=== PATIENT | female | born 1985 | race African-American/Black ===

== ENCOUNTER 2019-10-19 03:30 | Observation (INO) | payer OTHER, SELFPAY ==
--- NOTE | 2019-11-13 12:06 | PM.OBTRLD ---
OB - Triage/Final Diagnosis Visit Information Date of evaluation: 10/19/19 Reason for evaluation: threatened labor
== END 2019-10-19 06:05 | disposition home or self-care (01) ==
PROVIDERS: Admitting Provider Obstetrics & Gynecology; Visit Provider Obstetrics & Gynecology
DX: O47.1 False labor at or after 37 completed weeks of gestation (principal); Z3A.38 38 weeks gestation of pregnancy
CPT/HCPCS: G0378; G0379

== ENCOUNTER 2019-10-25 03:55 | Inpatient (IN) | payer OTHER, SELFPAY ==
[2019-10-25] VITALS (97 sets, daily range): BP systolic 98–139; BP diastolic 50–100; PULSE 67–153; RESP 16; TEMP 36.4–36.9; O2SAT 99–100; BMI 34.4
--- NOTE | 2019-10-25 04:39 | LDADM ---
This patient, Nallely Mcwilliams, was admitted to Labor/Delivery/Recovery 104 on 10/25/19 at 03:55. Plans for labor, pain management and were discussed with patient. Patient/family oriented to hospital policies and general routines including ID bracelet, bed and alarms, visiting hours, pain management, procedures, bathroom and other care routines, personal items, smoking policy, room service/diet and guest tray routines, infant security routines, and visiting hours. Patient/Family are encouraged to report perceived risks to care and to ask questions if they do not understand what they are told or what they should do. See OBIX for further documentation.
[2019-10-25 04:43] LABS: Basophils Percent Auto 0.1 % (0.2-1.2); Eosinophils Absolute Auto 0.1 K/mm3 (0-0.3); Eosinophils Percent Auto 0.9 % (0-4.4); Hematocrit 32.6 % (37.0-47.0); Hemoglobin 10.2 g/dL (12.0-15.0); Immature Granulocyte Percent A 1.2 % (0-0.5); Lymphocytes Absolute Auto 1.62 K/mm3 (0.9-3.2); Mean Corpuscular HGB Conc 31.3 g/dl (32-36); Mean Corpuscular Hemoglobin 28.4 pg (26-34); Mean Corpuscular Volume 90.8 fl (80-100); Mean Platelet Volume 9.9 fl (7.4-10.4); Monocytes Absolute Auto 0.4 K/mm3 (0.1-0.6); Monocytes Percent Auto 5.4 % (2.6-8.5); Neutrophils Absolute Auto 5.9 K/mm3 (1.3-6.7); Neutrophils Percent Auto 72.4 % (45.5-73.1); Platelet Count Result 363 k/mm3 (150-375); Red Blood Count 3.59 M/mm3 (4.2-5.4); Red Cell Distribution Width 13.5 % (11.5-14.5); White Blood Count 8.1 K/mm3 (4.5-10.0)
[2019-10-25] MEDS: FAMOTIDINE 20 MG/2 ML VIAL IV PUSH (04:49)
[2019-10-25] MEDS: LACTATED RINGERS 1,000 ML 125 ML IV CONT ×2 (05:29→06:38)
--- NOTE | 2019-10-25 06:39 | WPDANESEPP ---
Anes - Eval Pre Procedure Procedure: labor epidural Date/Time: 10/25/19 06:39 Surgeon: Liss Preop Diagnosis: labor pain Pre Op Diagnosis: INDUCTION OF LABOR Patient Data Age: 34 Gender: F Height: 1.68 m Weight: 97 kg Last Vital Signs Temp 36.9 C 10/25/19 04:30 Pulse 83 10/25/19 06:37 BP 130/79 10/25/19 06:37 Pulse Ox 99 10/25/19 06:35 Allergies Allergy/AdvReac Type Severity Reaction Status Date / Time tramadol Allergy Intermediate Itching Verified 10/05/19 13:47 Home Medications Medication Instructions Recorded Confirmed Type Gummies See Rx Instructions .ROUTE .COMPLEX 08/23/19 10/12/19 History Laboratory Tests 10/25/19 10/25/19 10/25/19 04:18 04:18 04:18 WBC 8.1 K/mm3 K/mm3 (4.5-10.0) RBC 3.59 M/mm3 L M/mm3 (4.2-5.4) Hgb 10.2 g/dL L g/dL (12.0-15.0) Hct 32.6 % L % (37.0-47.0) MCV 90.8 fl fl (80-100) MCH 28.4 pg pg (26-34) MCHC 31.3 g/dl L g/dl (32-36) RDW 13.5 % % (11.5-14.5) Plt Count 363 k/mm3 k/mm3 (150-375) MPV 9.9 fl fl (7.4-10.4) Immature Gran % (Auto) 1.2 % H % (0-0.5) Neut % (Auto) 72.4 % % (45.5-73.1) Lymph % (Auto) 20.0 % % (18.3-44.2) Rains % (Auto) 5.4 % % (2.6-8.5) Eos % (Auto) 0.9 % % (0-4.4) Baso % (Auto) 0.1 % L % (0.2-1.2) Lymph # (Auto) 1.62 K/mm3 K/mm3 (0.9-3.2) Rains # (Auto) 0.4 K/mm3 K/mm3 (0.1-0.6) Eos # (Auto) 0.1 K/mm3 K/mm3 (0-0.3) Baso # (Auto) 0.0 K/mm3 K/mm3 (0.0-0.1) Abs Immat Gran (auto) 0.10 K/mm3 H K/mm3 (0.00-0.031) Absolute Neuts (auto) 5.9 K/mm3 K/mm3 (1.3-6.7) Absolute Nucleated RBC 0.0 K/mm3 K/mm3 (0.0-0.012) Nucleated RBC % 0.0 % % (0.0-0.2) RPR Pending Blood Type Pending Antibody Screen Pending Patient hx anesthesia problems: none Family hx anesthesia problems: none [facility] Family History Family History (Updated 10/05/19 @ 13:26 by Sussy Edmond RN) Mother Hypertension Father Malignant neoplasm of prostate Social History Social History Smoking status: Former smoker Substance use: never Gender identity (if verbalized by the patient): Female Spiritual care concerns: No Exam Day of Procedure 10/25/19 06:39 Patient weight: obese
--- NOTE | 2019-10-25 07:32 | WPDOBADMIT ---
Obstetrics - Admit Note Admission Note: record reviewed. No pertinent additions to the history and/or any subsequent changes in the physical findings that are not consistent with the expected course of the were found. Additions to the history and/or subsequent changes in the physical findings follow. at 39 weeks for induction of labor. GBS negative. Cervix 4/50/-2. AROM with clear fluid. Anticipate .
[2019-10-25] MEDS: ONDANSETRON INJ 4 MG/2 ML VIAL IV PUSH (07:46)
[2019-10-25 10:48] LABS: Rapid Plasma Reagin Non-Reactive (NonReactive)
--- NOTE | 2019-10-25 11:06 | PM.OBPRVD ---
OB - Delivery Note Procedure Delivery date: 10/25/19 Procedure: events: Labor Induction Intrapartal events: None Induction method: AROM and per pitocin protocol Delivery monitor: external FHT Route of delivery: Laceration description: None Specimen: No Estimated blood loss (mL): 65 Anesthesia type: Epidural Disposition: floor Baby Date of : 10/25/19 Time of : 10:45 Weeks of gestation at delivery: 39 gender: Male Weight (pounds): 7 Weight (ounces): 14 presentation: vertex position: Right Occiput Posterior Placenta delivery description: Spontaneous cord vessel description: 3 Vessels score one minute: 9 score five minutes: 9
[2019-10-25] MEDS: IBUPROFEN 600 MG TABLET PO ×2 (14:03→20:44)
--- NOTE | 2019-10-25 14:10 | PC.NURSE ---
Patient transferred to post room #280 via wheelchair from labor and delivery. Support person present. Oriented to unit, room, information board, rooming in, admission packet and security measures. Patient verbalizes understanding.
[2019-10-25] MEDS: ACETAMINOPHEN 325 MG TABLET 650 MG PO (23:48)
[2019-10-26] MEDS: IBUPROFEN 600 MG TABLET PO ×4 (04:00→22:59)
--- NOTE | 2019-10-26 04:31 | P.PNOB_ITS ---
OB - PN: Subj Subjective Date/time seen: 10/26/19 04:31 Patient comments: no complaints, pain well controlled and other (Lochia similar to menses) [place] baby status: doing well OB - PN: Obj Data Labs CBC & Chem 7: 10/25/19 04:18 Labs: Laboratory Results - last 24 hr 10/25/19 10/25/19 10/25/19 04:18 04:18 04:18 WBC 8.1 RBC 3.59 L Hgb 10.2 L Hct 32.6 L MCV 90.8 MCH 28.4 MCHC 31.3 L RDW 13.5 Plt Count 363 MPV 9.9 Immature Gran % (Auto) 1.2 H Neut % (Auto) 72.4 Lymph % (Auto) 20.0 [place] % (Auto) 5.4 Eos % (Auto) 0.9 Baso % (Auto) 0.1 L Lymph # (Auto) 1.62 [place] # (Auto) 0.4 Eos # (Auto) 0.1 Baso # (Auto) 0.0 Abs Immat Gran (auto) 0.10 H Absolute Neuts (auto) 5.9 Absolute Nucleated RBC 0.0 Nucleated RBC % 0.0 RPR Non-reactive Blood Type B Positive Antibody Screen Negative OB - PN A/P Plan day: 1 (s/p vaginal delivery, doing well) Plan: routine care Time Spent With Patient Time: Total time spent is greater than 50% in coordination of care (as documented) at patient's floor/unit and/or counseling patient: Exam Const: General: no acute distress GI: Inspection: other (Fundus firm and nontender at umbilicus) GI Palp: Yes Soft to palpation and No Tenderness to palpation present (GI) Extrem: General: no edema
[2019-10-26 04:58] LABS: Hematocrit 29.4 % (37.0-47.0); Hemoglobin 9.5 g/dL (12.0-15.0)
--- NOTE | 2019-10-26 05:20 | PC.NURSE ---
Received orders from Dr. Domínguez to go ahead and order patient [place] 5mg q3 hrs as per protocol. Spoke with patient regarding her allergy to Tramadol, she had itching when she took the medication, patient has taken [place] before for a toothache and never had a problem. Confirmed with pharmacy that OK to order and as long as she has had the medication before. Confirmed with patient again before administering and she confirmed that she has taken [place] before without any reactions. Will continue to monitor patient.
--- NOTE | 2019-10-26 06:20 | PC.NURSE ---
Pt introductions made and plan of care discussed per post , pain management, breast/bottle feeding, daily care activities. PT verbalized understanding of such care.
[2019-10-26 08:50] VITALS: BP 114/72; PULSE 70; RESP 18; TEMP 36.6; O2SAT 100
[2019-10-26] MEDS: DOCUSATE SODIUM 100 MG CAPSULE PO ×2 (08:51→16:03)
[2019-10-26] MEDS: MULTIVIT/MIN/PREN/FOL AC/IRON TABLET 1 TAB PO (08:51)
[2019-10-26] MEDS: POLYSACCHARIDE IRON COMPLEX 150 MG CAPSULE PO ×2 (08:51→16:03)
[2019-10-26] MEDS: LANOLIN (LANSINOH) 7.5 GM CREAM 1 APPLIC TOPICAL (08:54)
--- NOTE | 2019-10-26 11:43 | WPDANLDPN2 ---
Anes-Prog Note L&D Date/Time: 10/26/19 11:43 Comfortable throughout: labor Neuraxial method: epidural Epidural/Spinal procedure site: clean & non-tender Neuro status: Neuro function grossly intact. Cardiovascular status: normal Vital Signs: Last Vital Signs Temp 36.6 C 10/26/19 08:50 Pulse 70 10/26/19 08:50 Resp 18 10/26/19 08:50 BP 114/72 10/26/19 08:50 Pulse Ox 100 10/26/19 08:50 Pain score (VAS): 0/10. Patient resting in bed at time of assessment, appears comfortable. Post-procedural complaints: none Patient feedback: Patient satisfied with anesthetic care.
[2019-10-26 20:20] VITALS: BP 115/62; PULSE 82; RESP 16; TEMP 36.8; O2SAT 99
[2019-10-27] MEDS: IBUPROFEN 600 MG TABLET PO (05:24)
--- NOTE | 2019-10-27 07:15 | PC.NURSE ---
PT introductions made and plan of care discussed per post , pain management, breast feeding, daily care activities and pending discharge to home. PT verbalized understanding of such care.
[2019-10-27] MEDS: POLYSACCHARIDE IRON COMPLEX 150 MG CAPSULE PO (09:28)
[2019-10-27] MEDS: DOCUSATE SODIUM 100 MG CAPSULE PO (09:28)
[2019-10-27] MEDS: MULTIVIT/MIN/PREN/FOL AC/IRON TABLET 1 TAB PO (09:28)
[2019-10-27 09:30] VITALS: BP 110/72; PULSE 74; RESP 18; TEMP 36.6; O2SAT 100
--- NOTE | 2019-10-27 10:00 | PC.NURSE ---
Patient was given the opportunity to view the discharge video Mother & Baby Care, The First Two Weeks and to ask questions. Patient declined viewing the video and has been given the mother/baby guide for home reference.
--- NOTE | 2019-10-27 10:11 | PM.OBPNVD ---
OB - PN: Subj Subjective Date/time seen: 10/27/19 10:11 Patient comments: no complaints, pain well controlled and other (Lochia similar to menses) [place] baby status: doing well OB - PN: Obj Data Labs CBC & Chem 7: 10/26/19 04:08 OB - PN A/P Plan day: 2 (s/p vaginal delivery, doing well) Plan: routine care, discharge home and other (Follow up in office in 4 weeks) Time Spent With Patient Time: Total time spent is greater than 50% in coordination of care (as documented) at patient's floor/unit and/or counseling patient: Exam Const: General: no acute distress GI: Inspection: other (Fundus firm and nontender below umbilicus) GI Palp: Yes Soft to palpation and No Tenderness to palpation present (GI) Extrem: General: no edema
--- NOTE | 2019-10-27 10:11 | PM.OBDSVD ---
DS: Diagnosis Discharge Diagnosis (1) Term delivered: Code(s): O80 - Encounter for full-term uncomplicated delivery Status: Acute OB - DS: Summary OB Procedures : None OB Procedures Intrapartum: Spontaneous Vag Delivery OB Procedures: : None Peripartum Data Delivery Method: Natural Vaginal complications: none Status at Discharge Functional status at discharge: independent ambulation Overall status at discharge: patient is progressing back to baseline Time Spent with Patient Time attestation: Total time spent providing and/or coordinating discharge services: Time spent: Less than 30 minutes Discharge Plan Discharge Attending physician on discharge: Verenice Domínguez Discharging Clinician: Verenice Domínguez Patient Disposition: Home, Self-Care Activity: may shower and pelvic rest Diet: regular Patient Instructions: Antibiotic Form Stand Alone Forms: General Discharge Information Follow-up/Referrals: Verenice Domínguez MD [Physician] - 4 Weeks Discharge Medications: New hydrocodone-acetaminophen 5-325 mg Tablet 1 tab PO Q3H PRN (Reason: Moderate Pain (4-6)) Qty: 20 RF: 0 docusate sodium 100 mg Capsule 100 mg PO BID PRN (Reason: Constipation) Qty: 0 RF: 0 ibuprofen 600 mg Tablet 600 mg PO Q6H PRN (Reason: Cramping) Qty: 60 RF: 0 Continued Gummies 400 mcg-35 mg- 25 mg-5 mg Tablet,Chewable See Rx Instructions .ROUTE .COMPLEX RF: 0 Date of admission: 10/25/19 03:55 Primary Care Provider: UNKNOWN,DOCTOR Admitting Provider: Arnaldo Leija Attending physician on admission: Arnaldo Leija
--- NOTE | 2019-10-27 10:30 | PC.NURSE ---
PT received discharge instructions per protocol and verbalized understanding of such care.
--- NOTE | 2019-10-27 11:10 | PC.NURSE ---
PT discharged to home ambulatory accompanied by infant and family to waiting car. Follow up appts confirmed.
--- NOTE | 2019-10-28 11:33 | PC.NURSE ---
1133 pt left hospital at this time with baby after her F/U visit and then a visit.
== END 2019-10-27 11:10 | disposition home or self-care (01) | DRG 807 ==
LOC: ANHOB2 10-27 10:17 → ANHLDR 10-29 09:42 → ANHOB2 10-29 09:42
PROVIDERS: Admitting Provider Obstetrics & Gynecology; Visit Provider Obstetrics & Gynecology
DX: O99.214 Obesity complicating childbirth (principal); Z37.0 Single live birth; E66.9 Obesity, unspecified; Z3A.39 39 weeks gestation of pregnancy
CPT/HCPCS: 36415; 85014; 85018; 85025; 86592; 86850; 86900; 86901; A9270; J2405; J2590; J2795; J3010; J7120

== ENCOUNTER 2021-03-15 12:20 | Outpatient (CLI) | payer OTHER, SELFPAY ==
--- NOTE | ~2021-03-15 | US_ITS ---
EXAMINATION: US pelvic complete w TV DATE: 03/15/2021 13:15 INDICATION: Pelvic pain Comparison:No prior studies for comparison. TECHNIQUE: Multiple transabdominal and endovaginal sonographic images of the pelvis performed. FINDINGS: The uterus measures 8.6 x 4.4 x 5.1 cm. The endometrial complex measures 10 mm. The right ovary measures 2.2 x 2.4 x 1.8 cm and the left ovary measures 4.6 x 2.7 x 2.3 cm. There ar e small follicles in each ovary. Normal doppler signal in both ovaries. There is no free fluid in the pelvis. There are no abnormal masses seen on either side. IMPRESSION: 1. Unremarkable pelvic ultrasound. Reviewed, dictated and finalized at location B.
== END 2021-03-15 12:21 | disposition home or self-care (01) ==
PROVIDERS: Visit Provider Obstetrics & Gynecology
DX: R10.2 Pelvic and perineal pain (principal)
CPT/HCPCS: 76830; 76856

== ENCOUNTER 2022-06-10 08:44 | Outpatient (CLI) | payer OTHER, SELFPAY ==
[2022-06-10 09:24] LABS: Basophils Percent Auto 0.3 % (0.2-1.2); Eosinophils Absolute Auto 0.1 K/mm3 (0-0.3); Eosinophils Percent Auto 2.5 % (0-4.4); Hematocrit 36.5 % (37.0-47.0); Hemoglobin 11.7 g/dL (12.0-15.0); Lymphocytes Absolute Auto 1.66 K/mm3 (0.9-3.2); Lymphocytes Percent Auto 46.9 % (18.3-44.2); Mean Corpuscular HGB Conc 32.1 g/dl (32-36); Mean Corpuscular Hemoglobin 29.8 pg (26-34); Mean Corpuscular Volume 92.9 fl (80-100); Mean Platelet Volume 9.5 fl (7.4-10.4); Monocytes Absolute Auto 0.3 K/mm3 (0.1-0.6); Monocytes Percent Auto 7.1 % (2.6-8.5); Neutrophils Absolute Auto 1.5 K/mm3 (1.3-6.7); Neutrophils Percent Auto 43.2 % (45.5-73.1); Platelet Count Result 370 k/mm3 (150-375); Red Blood Count 3.93 M/mm3 (4.2-5.4); Red Cell Distribution Width 13.2 % (11.5-14.5); White Blood Count 3.5 K/mm3 (4.5-10.0)
[2022-06-10 09:41] LABS: Alanine Aminotransferase 11 U/L (6-35); Albumin Level 4.2 g/dL (3.5-5.1); Alkaline Phosphatase 49 U/L (38-126); Anion Gap 9 mmol/L (8-16); Aspartate Amino Transferase 18 U/L (14-36); Bilirubin,Total 0.6 mg/dL (0.2-1.3); Blood Urea Nitrogen 9 mg/dL (7-17); Carbon Dioxide 24 mmol/L (22-30); Chloride 105 mmol/L (98-107); Estimated Glomerular Filt Rate > 60; Glucose 91 mg/dL (65-110); Potassium 4.1 mmol/L (3.4-5.0); Sodium 138 mmol/L (137-145)
[2022-06-10 09:55] LABS: Iron 70 ug/dL (37-170)
[2022-06-10 10:05] LABS: Percent Iron Saturation 17 % (20-50)
[2022-06-10 10:32] LABS: Ferritin 5.45 ng/mL (6.24-137)
== END 2022-06-10 08:45 | disposition home or self-care (01) ==
LOC: ANHLAB 08:48
PROVIDERS: Visit Provider Nurse Practitioner Family
DX: Z13.1 Encounter for screening for diabetes mellitus (principal); Z13.0 Encounter for screening for diseases of the blood and blood-forming organs and certain disorders involving the immune mechanism
CPT/HCPCS: 36415; 80053; 82607; 82728; 83540; 83550; 85025

== ENCOUNTER 2022-12-26 00:11 | Day surgery (SDC) | payer OTHER, SELFPAY ==
[2022-12-20 12:09] VITALS: BMI 29.5
--- NOTE | 2022-12-20 12:13 | PC.NURSE ---
Report to the Outpatient Waiting Room, entrance under the green pavilion located off [facility], at time 10:00 on date 12/26/22. Planned Procedure Time: 12:00. Time changes happen often and if your time is changed the preop area will call you the afternoon before. - You and your visitor will be asked to self-screen and do not enter if you have any COVID symptoms. - Only one visitor is requested with a max of two and NO children visitors are allowed at this time. - The patient visitor may be requested to leave or wait in car when not with patient due to distancing restrictions. - A mask is optional within the hospital at this time. Patients may have clear liquids (water, carbonated beverages, clear teas, apple juice) until 3 hours prior to surgery (9:00) with a maximum of 20 ounces. - No food from midnight until time of surgery Take the following medications with a SIP of water the morning of surgery: N/A DO NOT STOP ANY OF YOUR OTHER PRESCRIPTION MEDICATIONS PRIOR TO SURGERY?EXCEPT THE FOLLOWING Medications to discontinue per physician: N/A Date to take last dose: N/A Please no make-up, nail kyrgyz, hairspray, perfume, deodorant, or body powder the day of surgery. No jewelry (including any body piercings) or valuables the day of surgery, leave them at home. Please take a shower or bath the night before, or the morning of, surgery with an antibacterial soap. Wear comfortable, loose fitting clothing. - Jewelry must be removed prior to entering the operating room. Rings and piercings that are not removed may be cut off. - The hospital will not accept responsibility for valuables. - Please leave all valuables, including medications, at home the day of surgery. If you are going home after surgery, a licensed road train driver must drive you home. - NO public transportation without another adult if you receive anesthesia. - We recommend that an adult stay with you for 24 hours following discharge. - We also recommend that you do not drive, make important decision, drink alcoholic beverages, or take any drugs that were not prescribed by your health care provider for at least 24 hours after your discharge time. Follow any additional instructions given to you from your surgeon. If you or anyone in your household have experienced Covid symptoms in the past week, please notify your surgeon or the nurse liaison at the phone number below for possible testing. Telephone instructions given to PT - STACY HENDERSON and asked if any additional questions and then verbalized understanding. Patient advised to call surgeon office or pre surgery nurse liaison [phone] if any additional questions.
[2022-12-26] VITALS (11 sets, daily range): BP systolic 109–122; BP diastolic 61–80; PULSE 50–91; RESP 13–19; TEMP 36.2–36.8; O2SAT 96–100
[2022-12-26] MEDS: LACTATED RINGERS 1,000 ML 30 ML IV CONT ×2 (10:30→14:46)
[2022-12-26] MEDS: KETOROLAC 15 MG/ML VIAL (*BKC) IV PUSH (10:30)
[2022-12-26] MEDS: ACETAMINOPHEN 500 MG TABLET 1000 MG PO (11:00)
[2022-12-26] MEDS: SCOPOLAMINE 1.5 MG PATCH TRANSDERM (11:45)
--- NOTE | 2022-12-26 12:10 | P.PNAN_ITS ---
Anes - Initial Pre Proc Eval Procedure: Operation Date: 12/26/22 12:00 Proposed Procedures p Robotic Assisted Total Laparoscopic Hysterectomy with Bilateral Salpingectomy - Arnaldo Leija MD Date/Time: 12/26/22 12:10 Surgeon: Arnaldo Leija MD Pre Op Diagnosis: pelvic pain Patient Data Age: 37 Gender: F Height: 1.63 m Weight: 80 kg Last Vital Signs Temp 97.8 F 12/26/22 11:00 Pulse 61 12/26/22 11:00 Resp 18 12/26/22 11:00 BP 120/64 12/26/22 11:00 Pulse Ox 100 12/26/22 11:00 O2 Del Method Room Air 12/26/22 11:00 Allergies Allergy/AdvReac Type Severity Reaction Status Date / Time tramadol Allergy Intermediate Itching Verified 12/26/22 11:25 Home Medications Medication Instructions Recorded Confirmed Type fluconazole 150 mg tablet 150 mg PO EVERY OTHER DAY 12/20/22 12/20/22 History Laboratory Tests 12/26/22 10:51 Blood Type B Positive Antibody Screen Pending Patient hx anesthesia problems: none Family hx anesthesia problems: none Results Review: All pre-operative results and documents have been reviewed as part of the pre-operative evaluation. [facility] Past Medical History Medical History Acid reflux Inguinal hernia Family History Family History Mother Hypertension Father Malignant neoplasm of prostate Social History Social History Smoking status: Former smoker Tobacco type: cigarettes Additional smoking assessment comments: A TEENAGER Alcohol intake: never Substance use: never Substance use type: does not use Living arrangements: with family Gender identity (if verbalized by the patient): Female Spiritual care concerns: No Anes - Eval Final PreProcedure Day of Procedure 12/26/22 12:10 Patient weight: obese Heart: regular rate and rhythm Lungs: clear to auscultation Airway: Mallampati scale class II Neurological: alert and oriented Last oral intake: >/= 8 hours ASA classification: II Emergent: no Anesthetic plan: proceed Anesthesia type and monitoring: general ETT and standard monitoring Results Review: All pre-operative results and documents have been reviewed as part of the pre- operative evaluation. Informed Consent: The patient's anesthetic plan and its attendant risks and benefits were discussed with the patient/family/POA. Questions were solicited and answers provided to the satisfaction of the patient/family/POA.
--- NOTE | 2022-12-26 12:41 | WPDHPUPDATE1 ---
History and Physical Update Update Date/Time: 12/26/22 12:41 History and Physical has been reviewed, including an updated exam of the patient. There are NO changes in the patient's condition. Risks, benefits, and alternatives have been discussed and questions answered. Patient agrees to proceed with procedure.
[2022-12-26] MEDS: ceFAZolin 2 GM/D5W 50 ML 2 GM/50 ML BAG IVPB (12:48)
--- NOTE | 2022-12-26 14:46 | W.PM.PROC2 ---
Procedure Note - Detailed Date of Procedure 12/26/22 Pre-op Diagnosis pelvic pain, Menorrhagia, dysmenorrhea Post-op Diagnosis Same Procedure Performed Robot assisted Total hysterectomy with bilateral salpingectomy. Surgeon Arnaldo Leija MD Anesthesia General Indications heavy vaginal bleeding, pelvic pain Findings normal-appearing uterus, ovaries, and left tube, right tube was partially resected. Some scarring over the posterior cul-de-sac peritoneum. Description of Procedure This patient was taken to the operating room. She was prepped and draped in the dorsal lithotomy position after induction of general anesthesia. The uterine manipulator and Shayla cup were placed. This was done with a speculum and tenaculum. The speculum was placed. The cervix was grasped with a tenaculum. The stay sutures were placed at 3 and 9:00 a.m.. The stay sutures of 0 Vicryl were tied to the appropriately Size scope after it was slipped around the cervix.. The tip of the [place] manipulator was placed in the intrauterine cavity. The cup was slid into place around the cervix and into the fornices. It was locked into place. The sutures were then wrapped around the handle and tied under tension. A 8 mm skin incision was made in the left upper quadrant the abdomen. a 5 mm Visiport trocar was inserted into abdominal cavity and pneumoperitoneum was achieved. A 8 mm supraumbilical incision was made and a 8 mm trocar was inserted into the intrauterine cavity under direct visualization of the scope. an 8 mm incision was made in the right upper quadrant of the abdomen and an 8 mm robotic trocar was placed the inter uterine cavity under direct visualization the scope. An 11 mm trocar was inserted in the right upper quadrant of the abdomen rectal is a cystoscope after an incision was made there as well. The robot was docked. Electronic Orientation of the robot was performed. Bilateral ureteral lysis was performed. This was done from the pelvic brim down to the uterine artery. This was done with careful dissection using sharp and blunt dissection. The fallopian tubes were removed bilaterally. The mesosalpinx around the fallopian tubes were cauterized transected with LigaSure cautery. This was done in a bilateral fashion from the ovary to the uterine cornua. The fallopian tube was transected at the uterine cornu and amputated. The tube was taken out the left lower quadrant trocar site. In a stepwise fashion along the lateral aspects of the uterus the round ligament and broad ligaments were cauterized transected down to the level of the uterine arteries. A bladder flap was created in the bladder was moved distally to the end of the cervix and over the Shayla cup. The bilateral uterine arteries were cauterized and transected. Colpotomy was then performed. In a circumferential fashion the vagina was transected using unipolar cautery. The incision was made down on the Shayla cup. The uterus and cervix were taken out through the vagina. A pneumo occluder was placed in the vagina. The vaginal cuff was closed with a 0 V lock suture in a running fashion. The pelvis was irrigated with copious amounts antibiotic irrigation. The ureters were again examined and found to be intact and flowing freely under the uterine arteries into the bladder. The bladder was intact. It was examined directly. The vagina was irrigated with Betadine solution after removal of the Pneumo occluder. the trocars were removed after the robot was undocked. The skin was closed with subacute or Dermabond. The patient was taken to recovery room. She was stable condition. Sponge lap and needle counts were correct x2. Estimated Blood Loss 125 Urine Output 800 Drains Yes Packing No Pathology Yes Complications No immediate complications Condition Stable Disposition Floor
[2022-12-26] MEDS: fentaNYL CITRATE INJ (*CRX) 100 MCG/2 ML VIAL 25 MCG IV PUSH ×3 (15:30→16:00)
--- NOTE | 2022-12-26 16:36 | PC.NURSE ---
This patient, Nallely Mcwilliams, was received from PACU on 12/26/22 at 1636. Patient/family oriented to unit policies and routines
[2022-12-26] MEDS: DEXTROSE 5%/0.45% SOD CHL 1,000 ML 125 ML IV CONT (16:45)
[2022-12-26] MEDS: KETOROLAC 30 MG/ML VIAL (*BKC) IV PUSH ×2 (16:45→22:33)
[2022-12-26] MEDS: ONDANSETRON INJ 4 MG/2 ML VIAL IV PUSH (17:41)
[2022-12-26] MEDS: HYDROcodone/acetaminophen (*CRX) 5-325 MG TABLET 1 TAB PO (19:41)
[2022-12-26] MEDS: diphenhydrAMINE HCl INJ 50 MG/ML VIAL 25 MG IV PUSH (20:37)
[2022-12-26] MEDS: HYDROcodone/acetaminophen (*CRX) 10-325 MG TABLET 1 TAB PO (22:34)
--- NOTE | 2022-12-27 00:20 | PC.NURSE ---
Pt called me into the room and states she feels 100% better, she rates she pain a 1 at this time and is requesting that her siu catheter be removed at this time. Catheter is removed at this time and 400cc's of clear yellow urine noted, pt is requesting to get up to the bathroom, assisted pt to the bathroom and she voided 300cc's. Pt walked back to the bed on her own with me in the room, she tolerated ambulating on her own well, significant other in the room at the bedside. Told the patient to call out if she feels like she needs assistance if not she is able to ambulate and void on her own. Pt. verbalizes understanding.
[2022-12-27] MEDS: HYDROcodone/acetaminophen (*CRX) 10-325 MG TABLET 1 TAB PO ×4 (01:27→11:29)
[2022-12-27] MEDS: KETOROLAC 30 MG/ML VIAL (*BKC) IV PUSH (05:12)
[2022-12-27 05:19] VITALS: BP 96/65; PULSE 68; RESP 16; TEMP 36.6; O2SAT 100
--- NOTE | 2022-12-27 07:49 | WPDANESPN ---
Anes - Prog Note Post-Op Date/Time: 12/27/22 07:49 Cardiovascular status: normal Respiratory status: normal Airway patency: baseline Mental status: baseline Post-Op hydration status: normal Vital Signs: Last Vital Signs Temp 36.6 C 12/27/22 05:19 Pulse 68 12/27/22 05:19 Resp 16 12/27/22 05:19 BP 96/65 L 12/27/22 05:19 Pulse Ox 100 12/27/22 05:19 O2 Del Method Room Air 12/27/22 05:19 O2 Flow Rate 7 12/26/22 15:30 Pain Score (VAS): 3 I/O: Intake & Output 12/26/22 12/26/22 12/27/22 15:59 23:59 07:59 Intake Total 50 600 1200 Output Total 799 559 9092 Balance -790 450 0 12/26/22 10:51 Blood Type B Positive Antibody Screen Negative Post-procedural complaints: nausea Patient Feedback: Patient satisfied with anesthetic care.
[2022-12-27 08:30] VITALS: BP 99/54; PULSE 69; RESP 16; TEMP 36.7; O2SAT 100
--- NOTE | 2022-12-27 10:32 | PM.GYNPNOP ---
TEST DESK OPERATOR - A/P Postoperative Procedures: Procedures Operation Date: 12/26/22 12:00 Actual Procedure Side Surgeon p Robotic Assisted Total Laparoscopic Hysterectomy with Bilateral Salpingectomy Bilateral Arnaldo Leija MD Postoperative day: 1 Postoperative status: doing well Postoperative plan: see orders Time Spent With Patient Time: Total time spent is greater than 50% in coordination of care (as documented) at patient's floor/unit and/or counseling patient: Time with patient: less than 15 minutes TEST DESK OPERATOR- PN:Subj Post-Op Subjective Date/time seen: 12/27/22 10:32 Subjective: patient reports feeling better, patient has no complaints and pain is well controlled Exam Const: General: healthy appearing, comfortable and no acute distress Resp: Auscultation: clear to auscultation bilaterally, no rales, no rhonchi and no wheezes Cardio: Rate: regular rate Heart sounds: no click, no murmurs and no rubs GI: Inspection: non-distended Auscultation: normal bowel sounds Extrem: General: normal to inspection, no pedal edema and no calf tenderness TEST DESK OPERATOR - PN: Obj Data Vital Signs Vital Signs: Vital Signs - 24 hr 12/26/22 11:00 12/26/22 14:46 12/26/22 15:00 Temperature 97.8 F 98 F Pulse Rate 61 62 51 L Respiratory Rate 18 19 14 Blood Pressure 120/64 109/71 118/76 Pulse Oximetry 100 100 100 Oxygen Delivery Room Air Simple Face Mask Simple Face Mask Oxygen Flow Rate 7 7 12/26/22 15:15 12/26/22 15:30 12/26/22 15:45 Temperature Pulse Rate 50 L 50 L 55 L Respiratory Rate 14 13 14 Blood Pressure 114/62 114/62 109/73 Pulse Oximetry 100 100 96 Oxygen Delivery Simple Face Mask Simple Face Mask Room Air Oxygen Flow Rate 7 7 12/26/22 16:00 12/26/22 16:15 12/26/22 16:53 Temperature 97.2 F L Pulse Rate 55 L 65 54 L Respiratory Rate 14 14 14 Blood Pressure 111/67 109/61 122/67 Pulse Oximetry 100 99 100 Oxygen Delivery Room Air Room Air Oxygen Flow Rate 12/26/22 19:40 12/26/22 22:00 12/26/22 22:00 Temperature 98.1 F 98.2 F Pulse Rate 91 57 L 57 L Respiratory Rate 16 18 18 Blood Pressure 122/80 112/61 Pulse Oximetry 100 100 100 Oxygen Delivery Room Air Oxygen Flow Rate 12/26/22 22:00 12/27/22 05:19 12/27/22 05:19 Temperature 98.2 F 97.9 F Pulse Rate 57 L 68 68 Respiratory Rate 18 16 16 Blood Pressure 112/61 96/65 L Pulse Oximetry 100 100 100 Oxygen Delivery Room Air Room Air Oxygen Flow Rate 12/27/22 05:19 12/27/22 08:30 12/27/22 08:30 Temperature 97.9 F 98.0 F Pulse Rate 68 69 Respiratory Rate 16 16 Blood Pressure 96/65 L 99/54 L Pulse Oximetry 100 100 Oxygen Delivery Room Air Room Air Oxygen Flow Rate Intake/Output Intake/Output: Intake & Output 12/24/22 12/25/22 12/26/22 12/27/22 23:59 23:59 23:59 23:59 Intake Total 650 1200 Output Total 990 1200 Balance -340 0 Meds/Results Medications: Active Medications Generic Name Dose Route Start Last Admin Trade Name Freq PRN Reason Stop Dose Admin Hydrocodone Bitart/Acetaminophen 1 tab 12/26/22 16:24 12/26/22 19:41 Hydrocodone/Acetaminophen (*Crx) 5-325 Mg Tablet PO 1 tab Q3H PRN Administration Pain Rated 5 or Less Hydrocodone Bitart/Acetaminophen 1 tab 12/26/22 16:24 12/27/22 08:29 Hydrocodone/Acetaminophen (*Crx) 10-325 Mg Tablet PO 1 tab Q3H PRN Administration Pain Rated 6 or Greater Diphenhydramine HCl 25 mg 12/26/22 19:37 12/26/22 20:37 Diphenhydramine Hcl Inj 50 Mg/Ml Vial IV PUSH 25 mg Q4H PRN Administration Nausea And Vomiting Ibuprofen 600 mg 12/26/22 16:24 Ibuprofen 600 Mg Tablet PO Q6H PRN Cramping Ketorolac Tromethamine 30 mg 12/26/22 16:24 12/27/22 05:12 Ketorolac 30 Mg/Ml Vial (*Bkc) IV PUSH 12/31/22 16:23 30 mg Q6H PRN Administration Pain Rated 4-6 Naloxone HCl 0.1 mg 12/26/22 16:24 Naloxone Hcl 0.4 Mg/Ml Vial IV PUSH Q2M PRN Respiratory rate less than 10 Ondansetron HCl 4
[2022-12-27] MEDS: IBUPROFEN 600 MG TABLET PO (11:29)
[2022-12-27 11:46] VITALS: BP 91/46; PULSE 65; RESP 16; TEMP 36.8; O2SAT 99
== END 2022-12-27 12:02 | disposition home or self-care (01) ==
LOC: ANHSURGERY 15:00 → ANHOB2 16:29
PROVIDERS: PCP Nurse Practitioner Family; Visit Provider Obstetrics & Gynecology
PROC: (CPT 58571; principal; 2022-12-26 12:00)
DX: N92.0 Excessive and frequent menstruation with regular cycle (principal); R10.2 Pelvic and perineal pain; N94.6 Dysmenorrhea, unspecified; E66.9 Obesity, unspecified; Z68.30 Body mass index [BMI] 30.0-30.9, adult
CPT/HCPCS: 58571; S2900; 36415; 86850; 86900; 86901; 88307; 99199; A9270; J0690; J1100; J1170; J1200; J1885; J2250; J2405; J2704; J2710; J3010; J7030; J7120

== ENCOUNTER 2022-12-28 00:41 | Emergency (ER) | payer OTHER, SELFPAY ==
[2022-12-28 00:48] VITALS: BP 106/65; PULSE 63; RESP 16; TEMP 36.7; O2SAT 100
--- NOTE | 2022-12-28 01:27 | ED.GENADULT ---
HPI - General Adult General Chief complaint: Vaginal Bleeding Stated complaint: bleeding s/p hysterectomy Time Seen by Provider: 12/28/22 00:49 History of Present Illness HPI narrative: This is a 37-year-old female presenting to ED POD 2 after a laparoscopic abdominal hysterectomy with salpingectomy. Surgeries performed by Dr. Leija. Since then the patient has been having some vaginal spotting. She has gone through approximately 1 pad every 2-3 hours this afternoon. She denies chest pain shortness of breath dizziness or lightheadedness. Patient also noticed that she has been having difficulty urinating. Last time she urinated was at 7:00 p.m. this evening. Since then she has felt the urge to urinate but has been able to go. She does have some mild abdominal discomfort although she is not sure if that is from the surgery or so full bladder. She has never had urinary retention in the past. No other symptoms. Related Data Home Medications Medication Instructions Recorded Confirmed fluconazole 150 mg tablet 150 mg PO EVERY OTHER DAY 12/20/22 12/20/22 Allergies Allergy/AdvReac Type Severity Reaction Status Date / Time tramadol Allergy Intermediate Itching Verified 12/28/22 00:42 [facility] Past Medical History Medical History Acid reflux Inguinal hernia Surgical History Surgical History H/O: hysterectomy Family History Family History Mother Hypertension Father Malignant neoplasm of prostate Social History Social History Smoking status: Former smoker Tobacco type: cigarettes Additional smoking assessment comments: A TEENAGER Alcohol intake: never Substance use: never Substance use type: does not use Living arrangements: with family Gender identity (if verbalized by the patient): Female Spiritual care concerns: No Exam Narrative: APPEARANCE: No apparent distress. Head: atraumatic. EYES: EOMI, NOSE: Atraumatic NECK: Trachea midline RESPIRATORY: No increased rate of breathing CARDIOVASCULAR: RRR, ABDOMINAL: Mild tenderness to palpation in the suprapubic area without guarding or rebound. Multiple well-healing non erythematous surgical sites over the abdomen. No evidence of infection. Vaginal exam revealed no sangita blood coming from the vaginal vault. MUSCULOSKELETAl: No obvious deformities NEURO: Alert. Moving 4/4 extremities SKIN:: Warm, dry. Normal color PSYCHIATRIC: Normal affect Course Vital Signs Vital signs: Vital Signs Temperature 98.1 F 12/28/22 00:48 Pulse Rate 63 12/28/22 00:48 Respiratory Rate 16 12/28/22 00:48 Blood Pressure 106/65 12/28/22 00:48 Pulse Oximetry 100 12/28/22 00:48 Oxygen Delivery Room Air 12/28/22 00:48 Temperature 98.1 F 12/28/22 00:48 Pulse Rate 58 L 12/28/22 02:49 Respiratory Rate 17 12/28/22 02:49 Blood Pressure 107/55 L 12/28/22 02:49 Pulse Oximetry 100 12/28/22 02:49 Oxygen Delivery Room Air 12/28/22 00:48 Medical Decision Making MDM Narrative Medical decision making narrative: -Presentation: This is a 29-year-old female presented postoperative day 2 from a hysterectomy with salpingectomy. She has been having some vaginal bleeding. Additionally she is having difficulty urinating. lab work to evaluate for anemia, bladder scan urinalysis have been ordered. Patient will be given IV fluids and pain control. -DDX includes but is not limited to: Postoperative bleeding, postop complication, urinary retention, UTI -Co-morbidities complicating care: none -Social determinants of health: patient works as a project manager retail. She is accompanied by her Akshat -External Chart Review: operative -Hx from independent Sources: Akshat -Discussion of Manag
[2022-12-28 02:00] LABS: Basophils Percent Auto 0.1 % (0.2-1.2); Eosinophils Percent Auto 0.3 % (0-4.4); Hemoglobin 9.5 g/dL (12.0-15.0); Immature Granulocyte Absolute 0.01 K/mm3 (0.00-0.031); Immature Granulocyte Percent A 0.1 % (0-0.5); Lymphocytes Percent Auto 33.5 % (18.3-44.2); Mean Corpuscular HGB Conc 30.6 g/dl (32-36); Mean Corpuscular Hemoglobin 28.5 pg (26-34); Mean Corpuscular Volume 93.1 fl (80-100); Mean Platelet Volume 9.1 fl (7.4-10.4); Monocytes Absolute Auto 0.4 K/mm3 (0.1-0.6); Monocytes Percent Auto 4.9 % (2.6-8.5); Neutrophils Absolute Auto 4.4 K/mm3 (1.3-6.7); Neutrophils Percent Auto 61.1 % (45.5-73.1); Platelet Count Result 325 k/mm3 (150-375); Red Blood Count 3.33 M/mm3 (4.2-5.4); Red Cell Distribution Width 14.2 % (11.5-14.5); White Blood Count 7.2 K/mm3 (4.5-10.0)
[2022-12-28 02:12] LABS: Anion Gap 4 mmol/L (8-16); Blood Urea Nitrogen 11 mg/dL (7-17); Calcium 8.2 mg/dL (8.4-10.2); Carbon Dioxide 31 mmol/L (22-30); Chloride 103 mmol/L (98-107); Estimated CRCL calculation 112 ml/min; Estimated Glomerular Filt Rate > 60; Glucose 91 mg/dL (65-110); Potassium 3.3 mmol/L (3.4-5.0); Sodium 138 mmol/L (137-145)
[2022-12-28] MEDS: SODIUM CHLORIDE 0.9% IV 2,000 ML 999 ML IV CONT (02:14)
[2022-12-28] MEDS: HYDROmorphone HCL INJ (*CRX) 1 MG/ML SYR 0.5 MG IV PUSH (02:24)
[2022-12-28 02:25] LABS: Appearance Urine Cloudy (Clear); Bacteria Urine None Seen /hpf; Bilirubin Urine Negative (Negative); Blood Urine 3+ (Negative); Color Urine Yellow (Yellow); Glucose Urine UA Negative (Negative); Ketones Urine Trace mg/dL (Negative); Leukocyte Esterase Ur Negative LEU/UL (Negative); Nitrate Urine Negative (Negative); Non Pathogenic Casts 0-2; Protein Urine Trace mg/dL (Negative); RBC Urine >100 /hpf (0-2); Specific Grav Ur 1.025 (1.001-1.035); Squamous Epithelial Cell Urine Few /hpf (Few); pH Urine 5.5 (5.0-9.0)
[2022-12-28 02:32] LABS: Add Urine Microscopic? YES
[2022-12-28 02:49] VITALS: BP 107/55; PULSE 58; RESP 17; O2SAT 100
[2022-12-28 04:47] VITALS: BP 114/64; PULSE 89; RESP 18; O2SAT 98
== END 2022-12-28 04:49 | disposition home or self-care (01) ==
PROVIDERS: Emergency Provider Emergency Medicine; PCP Nurse Practitioner Family
DX: N99.820 Postprocedural hemorrhage of a genitourinary system organ or structure following a genitourinary system procedure (principal); Z90.710 Acquired absence of both cervix and uterus; Z90.79 Acquired absence of other genital organ(s); K21.9 Gastro-esophageal reflux disease without esophagitis; Z87.891 Personal history of nicotine dependence
CPT/HCPCS: 36415; 80048; 81001; 85025; 87086; 87088; 96361; 96374; 99284; J1170; J7030

== ENCOUNTER 2022-12-28 15:36 | Observation (INO) | payer OTHER, SELFPAY ==
[2022-12-28] VITALS (11 sets, daily range): BP systolic 113–125; BP diastolic 50–81; PULSE 70–80; RESP 14–22; TEMP 36.6–37.1; O2SAT 99–100
--- NOTE | ~2022-12-28 | US_ITS ---
EXAMINATION: US pelvic complete DATE: 12/28/2022 18:04 INDICATION: vaginal bleeding , hysterectomy 12/26/2022. TECHNIQUE: Multiple transabdominal and endovaginal sonographic images of the pelvis were obtained. COMPARISON: None. FINDINGS: Uterus: Status post hysterectomy. Irregular 4.1 x 2.4 x 3.7 cm isoechoic focus along the intraperiton eal side of the cervix, with a small volume surrounding fluid. Right Ovary: Obscured by bowel gas. Left Ovary: Obscured by bowel gas. There is no free fluid in the pelvis. IMPRESSION: 4.1 cm irregular intraperitoneal clot, with surrounding fluid, likely representing normal postsurgica l change. Ovaries not visualized. Reviewed, dictated and finalized at location K. IMPRESSION: 4.1 cm irregular intraperitoneal clot, with surrounding fluid, likely represent ing normal postsurgical change. Ovaries not visualized.
[2022-12-28] MEDS: SODIUM CHLORIDE 0.9% IV 1,000 ML 999 ML IV CONT (15:55)
--- NOTE | 2022-12-28 16:06 | ED.FEMALEGU ---
HPI - Female Genitourinary General Chief complaint: Vaginal Bleeding Stated complaint: near syncope Time Seen by Provider: 12/28/22 15:38 History of Present Illness HPI Narrative: Pt had a hysterectomy [address] Boudreaux. Pt has had heavy vagina bleeding and lower abdominal pain since after the procedure. Pt came to the ED last night for vaginal beeding and was eventually discharged home. Today pt went to see Dr Boudreaux in follow up and felt light headed and went to BR and nearly passed out. Pt was sent to ED for further evaluation. Related Data Home Medications Medication Instructions Recorded Confirmed fluconazole 150 mg tablet 150 mg PO EVERY OTHER DAY 12/20/22 12/20/22 Allergies Allergy/AdvReac Type Severity Reaction Status Date / Time tramadol Allergy Intermediate Itching Verified 12/28/22 15:51 Review of Systems Review of Systems: All systems reviewed & are unremarkable except as noted in HPI and below PMFSH Past Medical History Medical History Acid reflux Inguinal hernia Surgical History Surgical History H/O: hysterectomy Family History Family History Mother Hypertension Father Malignant neoplasm of prostate Social History Social History Smoking status: Former smoker Tobacco type: cigarettes Additional smoking assessment comments: A TEENAGER Alcohol intake: never Substance use: never Substance use type: does not use Living arrangements: with family Gender identity (if verbalized by the patient): Female Spiritual care concerns: No Exam Const: General: healthy appearing and no acute distress Nutritional Appearance: well nourished Orientation/consciousness: patient oriented x3 Resp: Effort & Inspection: normal respiratory effort Auscultation: clear to auscultation bilaterally Cardio: Rate: regular rate Rhythm: regular rhythm GI: GI Palp: Yes Soft to palpation and Yes Tenderness to palpation present (GI) (low abdomen) : Other: vaginal bleeding Skin: General skin exam: normal color Wounds: no wounds Neuro: General: patient oriented x3, moves all extremities, no focal motor deficits and CN's II-XI intact bilaterally Speech: normal speech Extrem: General: normal to inspection and no clubbing, cyanosis or edema Psych: Appearance: grossly normal Mental Status: mental status grossly normal Affect: normal affect Attitude: cooperative Course Vital Signs Vital signs: Vital Signs Temperature 98.4 F 12/28/22 15:40 Pulse Rate 75 12/28/22 15:40 Respiratory Rate 17 12/28/22 15:40 Blood Pressure 121/50 L 12/28/22 15:40 Pulse Oximetry 100 12/28/22 15:40 Oxygen Delivery Room Air 12/28/22 15:40 Temperature 98.8 F 12/28/22 18:34 Pulse Rate 70 12/28/22 18:34 Respiratory Rate 20 12/28/22 18:34 Blood Pressure 113/65 12/28/22 18:34 Pulse Oximetry 100 12/28/22 18:34 Oxygen Delivery Room Air 12/28/22 15:40 MDM - Female Genitourinary MDM Narrative Medical decision making narrative: Pt s/p hysterectomy by Dr Boudreaux 2 days ago presents for persistent vaginal bleeding. Pt seen in ED last night and Hb 9.5, now 7.2. discussed with Dr Boudreaux transfulse 2 units and pelvic us and he will take to OR. Informed pt and she is in agreement with plan. ultrasound shows post op changes but no free fluid. d/w dr boudreaux and he will take pt to OR. Lab Data 12/28/22 16:33 12/28/22 16:33 Labs: Lab Results 12/26/22 12/28/22 12/28/22 Range/Units 10:51 16:33 16:33 WBC 7.6 (4.5-10.0) K/mm3 RBC 2.49 L (4.2-5.4) M/mm3 Hgb 7.2 L (12.0-15.0) g/dL Hct 23.6 L (37.0-47.0) % MCV 94.8 (80-100) fl MCH 28.9 (26-34) pg MCHC 30.5 L (32-36) g/dl RDW 14.2 (11.5-14.5) % P
[2022-12-28 16:40] LABS: Basophils Percent Auto 0.1 % (0.2-1.2); Eosinophils Absolute Auto 0.1 K/mm3 (0-0.3); Eosinophils Percent Auto 0.7 % (0-4.4); Hematocrit 23.6 % (37.0-47.0); Hemoglobin 7.2 g/dL (12.0-15.0); Immature Granulocyte Absolute 0.02 K/mm3 (0.00-0.031); Immature Granulocyte Percent A 0.3 % (0-0.5); Lymphocytes Percent Auto 22.4 % (18.3-44.2); Mean Corpuscular HGB Conc 30.5 g/dl (32-36); Mean Corpuscular Hemoglobin 28.9 pg (26-34); Mean Corpuscular Volume 94.8 fl (80-100); Mean Platelet Volume 9.4 fl (7.4-10.4); Monocytes Absolute Auto 0.4 K/mm3 (0.1-0.6); Monocytes Percent Auto 4.7 % (2.6-8.5); Neutrophils Absolute Auto 5.4 K/mm3 (1.3-6.7); Neutrophils Percent Auto 71.8 % (45.5-73.1); Platelet Count Result 304 k/mm3 (150-375); Red Blood Count 2.49 M/mm3 (4.2-5.4); Red Cell Distribution Width 14.2 % (11.5-14.5); White Blood Count 7.6 K/mm3 (4.5-10.0)
[2022-12-28 16:52] LABS: Alanine Aminotransferase 13 U/L (6-35); Albumin Level 3.4 g/dL (3.5-5.1); Alkaline Phosphatase 41 U/L (38-126); Anion Gap -1 mmol/L (8-16); Aspartate Amino Transferase 19 U/L (14-36); Bilirubin,Total 0.3 mg/dL (0.2-1.3); Blood Urea Nitrogen 10 mg/dL (7-17); Calcium 7.8 mg/dL (8.4-10.2); Carbon Dioxide 32 mmol/L (22-30); Chloride 106 mmol/L (98-107); Estimated CRCL calculation 133 ml/min; Estimated Glomerular Filt Rate > 60; Glucose 102 mg/dL (65-110); Potassium 3.3 mmol/L (3.4-5.0); Sodium 137 mmol/L (137-145)
[2022-12-28 17:01] LABS: INR 1.2; Partial Thromboplastin Time 26.8 SECONDS (22.3-36.8)
[2022-12-28] MEDS: SODIUM CHLORIDE 0.9% IV 250 ML 30 ML IV CONT (18:17)
[2022-12-28] MEDS: TUBING, BLOOD PLUM PUMP TUBING 1 EACH XX (18:19)
--- NOTE | 2022-12-28 18:51 | PM.IMHP ---
H&P: [facility] History of Present Illness Date/Time: 12/28/22 18:51 Chief Complaint: Dizziness Narrative: this patient is a 37-year-old female with postop vaginal bleeding and syncopal episode. She appears to blood the point dizziness and possibly had a vasovagal reaction or syncopal episode in the bathroom at the office. She was transported to the ER by ambulance. Pelvic ultrasound revealed no intra-abdominal or pelvic free fluid. She denies any chest pain or shortness of breath. She denies any nausea, vomiting, fever, chills. Review of Systems Review of Systems: All systems reviewed & are unremarkable except as noted in HPI and below Constitutional: Constitutional: Denies chills, Denies fatigue, Denies fever(s) and Denies weakness Eyes: Eyes: Denies blurry vision, Denies change in vision, Denies loss of peripheral vision, Denies loss of vision, Denies other visual disturbances and Denies eye pain ENT: Denies vertigo, Denies dizziness, Denies hearing loss, Denies mouth pain, Denies nasal obstruction, Denies neck mass and Denies neck pain Cardiovascular: Cardiovascular: Denies chest pain, Denies diaphoresis, Denies syncope, Denies leg edema and Denies dyspnea Respiratory: Respiratory: Denies chest congestion, Denies cough, Denies hemoptysis, Denies dyspnea and Denies wheezing Gastrointestinal: Gastrointestinal: Denies abdominal pain, Denies constipation, Denies diarrhea, Denies nausea and Denies vomiting Genitourinary: Genitourinary: Denies hematuria, Denies change in libido, Denies nocturia, Denies genital lesions, Denies flank pain and Denies urinary urgency Musculoskeletal: Musculoskeletal: Denies abnormal gait, Denies back pain, Denies myalgias, Denies arthralgias, Denies joint swelling, Denies muscle weakness and Denies neck pain Integumentary/Breasts: Skin/Breast: Denies swelling, Denies breast pain, Denies breast mass, Denies dry skin, Denies nipple discharge, Denies unusual bruising and Denies jaundice Neurologic: Denies Neuro-related abnormal movements, Denies Abnormal speech present, Denies abnormal gait, Denies behavioral changes, Denies confusion, Denies vertigo, Denies dizziness, Denies syncope, Denies loss of vision, Denies memory loss, Denies convulsions and Denies weakness Psychiatric: Psychiatric: Denies abnormal sleep pattern, Denies behavioral changes, Denies change in libido, Denies confusion, Denies depression, Denies anhedonia and Denies memory loss Endocrine: Endocrine: Reports no additional endocrine complaints, Denies change in libido and Denies fatigue Hematologic/Lymphatic: Hematologic/Lymphatic: Reports no additional hematologic/lymphatic complaints Allergic/Immunologic: Allergic/Immunologic: Reports no additional allergic/immunologic complaints and Denies wheezing PMFSH Past Medical History Medical History Acid reflux Inguinal hernia Surgical History Surgical History H/O: hysterectomy Family History Family History Mother Hypertension Father Malignant neoplasm of prostate Social History Social History Smoking status: Former smoker Tobacco type: cigarettes Additional smoking assessment comments: A TEENAGER Alcohol intake: never Substance use: never Substance use type: does not use Living arrangements: with family Gender identity (if verbalized by the patient): Female Spiritual care concerns: No Meds Home Medications and Allergies Home Medications Medication Instructions Recorded Confirmed Type fluconazole 150 mg tablet 150 mg PO EVERY OTHER DAY 12/20/22 12/20/22 History hydrocodone 5 mg-acetaminophen 325 1 - 2 tablet PO Q6H PRN pain #25 12/27/22 Rx mg tablet tabs Allergies Allergy/AdvReac Type Severity Reaction Status Date / Time tramadol
--- NOTE | 2022-12-28 18:56 | WPDHPUPDATE1 ---
History and Physical Update Update Date/Time: 12/28/22 18:56 History and Physical has been reviewed, including an updated exam of the patient. There are NO changes in the patient's condition. Risks, benefits, and alternatives have been discussed and questions answered. Patient agrees to proceed with procedure.
--- NOTE | 2022-12-28 19:28 | P.PNAN_ITS ---
Anes - Eval Final PreProcedure Day of Procedure 12/28/22 19:28 Patient weight: overweight Heart: regular rate and rhythm Lungs: clear to auscultation Airway: Mallampati scale class II Neurological: alert and oriented Last oral intake: 6 hours ASA classification: II Emergent: yes Anesthetic plan: proceed Anesthesia type and monitoring: general ETT and standard monitoring Results Review: All pre-operative results and documents have been reviewed as part of the pre- operative evaluation. Informed Consent: The patient's anesthetic plan and its attendant risks and benefits were discussed with the patient/family/POA. Questions were solicited and answers provided to the satisfaction of the patient/family/POA.
[2022-12-28] MEDS: LACTATED RINGERS 1,000 ML 30 ML IV CONT (20:57)
--- NOTE | 2022-12-28 21:05 | W.PM.PROC2 ---
Procedure Note - Detailed Date of Procedure 12/28/22 Pre-op Diagnosis near syncope, vaginal bleeding, postop bleeding Post-op Diagnosis Same Procedure Performed pelvic exam under anesthesia, Diagnostic laparoscopy, revision of vaginal cuff Surgeon Arnaldo Leija MD Anesthesia General Indications Syncope, vaginal bleeding Findings initially dark blood was coming through the suture line inside the vagina as it was examined. In the diagnostic laparoscopy no active bleeding was observed, there was a small old clot, possible area of bleeding that was small was cauterized, transvaginally the vaginal closure was revised with a running 0 Vicryl. Description of Procedure Patient was taken the operating room. She was prepped and draped in the dorsal lithotomy position After induction of general anesthesia. pelvic exam was performed. The speculum was placed in the vagina. There was old blood coming through the incision line. Diagnostic laparoscopy was performed: A 5 mm incision was made with a scalpel on the abdominal skin in the left upper quadrant of the abdomen. A 5 mm trocar was inserted into the intra-abdominal cavity under direct visualization the scope. In the same fashion a 5 mm left lower quadrant trocar was inserted and a 5 mm infraumbilical trocar was inserted. The above findings were noted, no active bleeding, minimal pelvic clot. The pelvis was irrigated. The pneumoperitoneum was reduced. The trocars were removed. Skin was closed with subcuticular 4 micro. The patient's incisions were covered with Dermabond. She was taken recovery room in stable condition. Sponge lap and needle counts were correct x2. transvaginally the vaginal incision line was revised. Running 0 Vicryl was placed. This was done using a speculum. It was hemostatic at the end of the procedure. Estimated Blood Loss 15 Complications No immediate complications Condition Stable Disposition Same day
[2022-12-28] MEDS: fentaNYL CITRATE INJ (*CRX) 100 MCG/2 ML VIAL 25 MCG IV PUSH ×8 (21:20→21:55)
[2022-12-28] MEDS: HYDROcodone/acetaminophen (*CRX) 10-325 MG TABLET 1 TAB PO (22:42)
[2022-12-28] MEDS: ONDANSETRON INJ 4 MG/2 ML VIAL IV PUSH (22:50)
[2022-12-29] MEDS: KETOROLAC 30 MG/ML VIAL (*BKC) IV PUSH (00:28)
--- NOTE | 2022-12-29 00:40 | OBPPTRN ---
Patient transferred to post room #289 via bed. Support person present. Oriented to unit, room, information board. Patient verbalizes understanding.
[2022-12-29 05:00] VITALS: BP 94/57; PULSE 78; RESP 14; TEMP 37.1; O2SAT 100
[2022-12-29] MEDS: HYDROcodone/acetaminophen (*CRX) 10-325 MG TABLET 1 TAB PO ×5 (05:00→21:00)
[2022-12-29 07:30] VITALS: BP 118/61; PULSE 84; RESP 16; TEMP 37.7; O2SAT 100
--- NOTE | 2022-12-29 08:26 | PM.GYNPNOP ---
CELL BIOLOGY SCIENTIST - A/P Assessment and plan (1) Vaginal bleeding: Code(s): N93.9 - Abnormal uterine and vaginal bleeding, unspecified Status: Acute (2) Syncope: Code(s): R55 - Syncope and collapse Status: Acute Plan 37-year-old female with postoperative bleeding, vaginal bleeding. Postoperative day 1 from revision of vaginal cuff, postoperative day 3 from robotic assisted hysterectomy and bilateral salpingectomy. No bleeding overnight, stable, ambulatory. Will continue to observe her throughout the day to confirm that she is well. Likely discharge later. Postoperative Procedures: Procedures Operation Date: 12/28/22 19:00 Actual Procedure Side Surgeon p Diagnostic Laparoscopy, Pelvic Exam Under Anesthesia, Revision of Vaginal Cuff Arnaldo Leija MD Postoperative day: 1 Postoperative status: doing well Postoperative plan: see orders Time Spent With Patient Time: Total time spent is greater than 50% in coordination of care (as documented) at patient's floor/unit and/or counseling patient: Time with patient: 15 - 25 minutes CELL BIOLOGY SCIENTIST- PN:Patti Post-Op Subjective Date/time seen: 12/29/22 08:26 Subjective: patient reports feeling better, patient has no complaints and pain is well controlled Exam Const: General: healthy appearing, comfortable and no acute distress Resp: Auscultation: clear to auscultation bilaterally, no rales, no rhonchi and no wheezes Cardio: Rate: regular rate Heart sounds: no click, no murmurs and no rubs GI: Inspection: non-distended Auscultation: normal bowel sounds Extrem: General: normal to inspection, no pedal edema and no calf tenderness CELL BIOLOGY SCIENTIST - PN: Obj Data Vital Signs Vital Signs: Vital Signs - 24 hr 12/28/22 15:40 12/28/22 17:19 12/28/22 18:17 Temperature 98.4 F 98 F Pulse Rate 75 73 71 Respiratory Rate 17 20 20 Blood Pressure 121/50 L 116/60 125/64 Pulse Oximetry 100 99 100 Oxygen Delivery Room Air Oxygen Flow Rate 12/28/22 18:26 12/28/22 18:34 12/28/22 20:57 Temperature 98.8 F 98.5 F Pulse Rate 71 70 80 Respiratory Rate 20 20 14 Blood Pressure 125/64 113/65 113/65 Pulse Oximetry 100 100 100 Oxygen Delivery Simple Face Mask Oxygen Flow Rate 6 12/28/22 21:10 12/28/22 21:25 12/28/22 21:40 Temperature Pulse Rate 80 71 70 Respiratory Rate 22 H 20 15 Blood Pressure 120/81 119/76 115/72 Pulse Oximetry 100 100 100 Oxygen Delivery Simple Face Mask Simple Face Mask Room Air Oxygen Flow Rate 6 6 12/28/22 21:55 12/28/22 22:30 12/29/22 05:00 Temperature 98.3 F 98.7 F Pulse Rate 73 70 78 Respiratory Rate 17 16 14 Blood Pressure 116/70 123/68 94/57 L Pulse Oximetry 99 100 100 Oxygen Delivery Room Air Oxygen Flow Rate Intake/Output Intake/Output: Intake & Output 12/26/22 12/27/22 12/28/22 12/29/22 23:59 23:59 23:59 23:59 Intake Total 1950 440 Output Total 150 300 Balance 1800 140 Meds/Results Medications: Active Medications Generic Name Dose Route Start Last Admin Trade Name Freq PRN Reason Stop Dose Admin Hydrocodone Bitart/Acetaminophen 1 tab 12/28/22 21:09 Hydrocodone/Acetaminophen (*Crx) 5-325 Mg Tablet PO Q3H PRN Pain Rated 5 or Less Hydrocodone Bitart/Acetaminophen 1 tab 12/28/22 21:09 12/29/22 05:00 Hydrocodone/Acetaminophen (*Crx) 10-325 Mg Tablet PO 1 tab Q3H PRN Administration Pain Rated 6 or Greater Dextrose/Sodium Chloride 1,000 mls @ 125 mls/hr 12/28/22 21:10 12/29/22 00:41 Dextrose 5% Sodium Chloride 0.45% IV CONT Not Given .Q8H JURGEN Ibuprofen 600 mg 12/28/22 21:09 Ibuprofen 600 Mg Tablet PO Q6H PRN Cramping Ketorolac Tromethamine 30 mg 12/28/22 21:09 12/29/22 00:28 Ketorolac 30 Mg/Ml Vial (*Bkc) IV PUSH 01/02/23 21:08 30 mg Q6H PRN Administration Pain Rated 4-6 Naloxone HCl 0.1 mg 12/28/22 21:09 Naloxone Hcl 0.4 Mg/Ml Vial IV PUSH Q2M PRN Respiratory rate less than 10 Ondansetron HCl 4 mg
[2022-12-29 09:00] VITALS: PULSE 84; RESP 16; O2SAT 100
--- NOTE | 2022-12-29 09:30 | P.PNAN_ITS ---
Anes - Prog Note Post-Op Date/Time: 12/29/22 09:30 Cardiovascular status: normal Respiratory status: normal Airway patency: baseline Mental status: baseline Post-Op hydration status: normal Vital Signs: Last Vital Signs Temp 37.1 C 12/29/22 05:00 Pulse 78 12/29/22 05:00 Resp 14 12/29/22 05:00 BP 94/57 L 12/29/22 05:00 Pulse Ox 100 12/29/22 05:00 O2 Del Method Room Air 12/28/22 21:55 O2 Flow Rate 6 12/28/22 21:25 Pain Score (VAS): 12/02 I/O: Intake & Output 12/28/22 12/29/22 12/29/22 23:59 07:59 15:59 Intake Total 1950 440 Output Total 150 300 Balance 1800 140 Laboratory Tests 12/28/22 16:33 12/28/22 16:33 12/26/22 12/28/22 12/28/22 10:51 16:33 16:33 WBC 7.6 RBC 2.49 L Hgb 7.2 L Hct 23.6 L MCV 94.8 MCH 28.9 MCHC 30.5 L RDW 14.2 Plt Count 304 MPV 9.4 Immature Gran % (Auto) 0.3 Neut % (Auto) 71.8 Lymph % (Auto) 22.4 Nicholas % (Auto) 4.7 Eos % (Auto) 0.7 Baso % (Auto) 0.1 L Lymph # (Auto) 1.70 Nicholas # (Auto) 0.4 Eos # (Auto) 0.1 Baso # (Auto) 0.0 Abs Immat Gran (auto) 0.02 Absolute Neuts (auto) 5.4 Absolute Nucleated RBC 0.0 Nucleated RBC % 0.0 PT 15.0 H INR 1.2 APTT 26.8 Sodium Potassium Chloride Carbon Dioxide Anion Gap BUN Creatinine Estim Creat Clear Calc Estimated GFR Glucose Calcium Total Bilirubin AST ALT Alkaline Phosphatase Total Protein Albumin Blood Type B Positive Antibody Screen Negative Crossmatch See Detail 12/28/22 16:33 WBC RBC Hgb Hct MCV MCH MCHC RDW Plt Count MPV Immature Gran % (Auto) Neut % (Auto) Lymph % (Auto) Nicholas % (Auto) Eos % (Auto) Baso % (Auto) Lymph # (Auto) Nicholas # (Auto) Eos # (Auto) Baso # (Auto) Abs Immat Gran (auto) Absolute Neuts (auto) Absolute Nucleated RBC Nucleated RBC % PT INR APTT Sodium 137 Potassium 3.3 L Chloride 106 Carbon Dioxide 32 H Anion Gap -1 L BUN 10 Creatinine 0.50 L Estim Creat Clear Calc 133 Estimated GFR > 60 Glucose 102 Calcium 7.8 L Total Bilirubin 0.3 AST 19 ALT 13 Alkaline Phosphatase 41 Total Protein 6.0 L Albumin 3.4 L Blood Type Antibody Screen Crossmatch Post-procedural complaints: none Patient Feedback: Patient satisfied with anes
[2022-12-29] MEDS: IBUPROFEN 600 MG TABLET PO ×3 (10:57→23:59)
[2022-12-29 12:35] VITALS: BP 102/55; PULSE 83; RESP 16; TEMP 37.3; O2SAT 100
[2022-12-29 15:27] LABS: Hematocrit 28.1 % (37.0-47.0); Hemoglobin 9.1 g/dL (12.0-15.0); Mean Corpuscular HGB Conc 32.4 g/dl (32-36); Mean Corpuscular Hemoglobin 29.2 pg (26-34); Mean Corpuscular Volume 90.1 fl (80-100); Platelet Count Result 193 k/mm3 (150-375); Red Blood Count 3.12 M/mm3 (4.2-5.4); Red Cell Distribution Width 14.9 % (11.5-14.5); White Blood Count 9.3 K/mm3 (4.5-10.0)
[2022-12-29 20:45] VITALS: BP 112/59; PULSE 82; RESP 16; TEMP 37.2; O2SAT 100
[2022-12-29] MEDS: diphenhydrAMINE HCl CAP 25 MG CAPSULE PO (22:01)
[2022-12-29] MEDS: HYDROcodone/acetaminophen (*CRX) 5-325 MG TABLET 1 TAB PO (23:59)
[2022-12-30] MEDS: diphenhydrAMINE HCl CAP 25 MG CAPSULE PO (03:33)
[2022-12-30 07:45] VITALS: PULSE 82; RESP 16; O2SAT 100
--- NOTE | 2022-12-30 07:53 | PC.NURSE ---
IV removed by night RN; not charted.
[2022-12-30 08:50] VITALS: BP 107/54; PULSE 88; RESP 16; TEMP 37.1; O2SAT 100
--- NOTE | 2022-12-30 10:36 | PM.GYNPNOP ---
KEYBOARD INSTRUMENT TUNER - A/P Postoperative Procedures: Procedures Operation Date: 12/28/22 19:00 Actual Procedure Side Surgeon p Diagnostic Laparoscopy, Pelvic Exam Under Anesthesia, Revision of Vaginal Cuff Arnaldo Leija MD Postoperative day: 2 Postoperative status: doing well Postoperative plan: see orders Time Spent With Patient Time: Total time spent is greater than 50% in coordination of care (as documented) at patient's floor/unit and/or counseling patient: Time with patient: less than 15 minutes KEYBOARD INSTRUMENT TUNER- PN:Subj Post-Op Subjective Date/time seen: 12/30/22 10:36 Subjective: patient reports feeling better, patient has no complaints and pain is well controlled Exam Const: General: healthy appearing, comfortable and no acute distress Resp: Auscultation: clear to auscultation bilaterally, no rales, no rhonchi and no wheezes Cardio: Rate: regular rate Heart sounds: no click, no murmurs and no rubs GI: Inspection: non-distended Auscultation: normal bowel sounds Extrem: General: normal to inspection, no pedal edema and no calf tenderness KEYBOARD INSTRUMENT TUNER - PN: Obj Data Vital Signs Vital Signs: Vital Signs - 24 hr 12/29/22 12:35 12/29/22 20:45 12/29/22 20:46 Temperature 99.1 F 99 F Pulse Rate 83 82 Respiratory Rate 16 16 Blood Pressure 102/55 L 112/59 L Pulse Oximetry 100 100 Oxygen Delivery Room Air 12/30/22 07:45 12/30/22 08:50 Temperature 98.8 F Pulse Rate 82 88 Respiratory Rate 16 16 Blood Pressure 107/54 L Pulse Oximetry 100 100 Oxygen Delivery Room Air Intake/Output Intake/Output: Intake & Output 12/27/22 12/28/22 12/29/22 12/30/22 23:59 23:59 23:59 23:59 Intake Total 1950 640 Output Total 150 300 Balance 1800 340 Meds/Results Medications: Active Medications Generic Name Dose Route Start Last Admin Trade Name Freq PRN Reason Stop Dose Admin Hydrocodone Bitart/Acetaminophen 1 tab 12/29/22 10:25 12/29/22 23:59 Hydrocodone/Acetaminophen (*Crx) 5-325 Mg Tablet PO 1 tab Q3H PRN Administration Pain Rated 5 or Less Hydrocodone Bitart/Acetaminophen 1 tab 12/29/22 12:00 12/29/22 21:00 Hydrocodone/Acetaminophen (*Crx) 10-325 Mg Tablet PO 1 tab Q3H PRN Administration Pain Rated 6 or Greater Ibuprofen 600 mg 12/29/22 10:26 12/29/22 23:59 Ibuprofen 600 Mg Tablet PO 600 mg Q6H PRN Administration Cramping Ketorolac Tromethamine 30 mg 12/29/22 10:26 Ketorolac 30 Mg/Ml Vial (*Bkc) IV PUSH 01/02/23 21:08 Q6H PRN Pain Rated 4-6 Naloxone HCl 0.1 mg 12/28/22 21:09 Naloxone Hcl 0.4 Mg/Ml Vial IV PUSH Q2M PRN Respiratory rate less than 10 Ondansetron HCl 4 mg 12/28/22 21:09 Ondansetron Inj 4 Mg/2 Ml Vial IV PUSH Q6H PRN Nausea And Vomiting Radiology Results: ITS Impressions Pelvis Ultrasound 12/28/22 18:17 IMPRESSION: 4.1 cm irregular intraperitoneal clot, with surrounding fluid, likely representing normal postsurgical change. Ovaries not visualized. Labs 12/29/22 15:04 12/28/22 16:33 Labs: Laboratory Results - last 24 hr 12/29/22 15:04 WBC 9.3 RBC 3.12 L Hgb 9.1 L Hct 28.1 L MCV 90.1 MCH 29.2 MCHC 32.4 RDW 14.9 H Plt Count 193 MPV 10.0
[2022-12-30] MEDS: IBUPROFEN 600 MG TABLET PO (11:36)
[2022-12-30] MEDS: HYDROcodone/acetaminophen (*CRX) 10-325 MG TABLET 1 TAB PO (11:37)
--- NOTE | 2023-01-22 19:30 | PM.DS ---
DS: Admitting Diagnosis Discharge Date 12/30/22 Admitting Diagnosis Postop bleeding DS: Summary Hospital Course Hospital Course: 37-year-old female who was admitted for postoperative bleeding. She had a hysterectomy several days previously. Moderate amounts of vaginal bleeding a bit observed. Was persistent. She was admitted for revision of vaginal cuff. Along with diagnostic laparoscopy. Those procedures were performed in the operating room under anesthesia. She tolerated those well. She was observed for 2 days postoperative. she recovered normally. She was discharged home on postoperative day 2. Time Spent with Patient Time attestation: Total time spent providing and/or coordinating discharge services: Discharge Plan Discharge Consulting providers: Morro Peace; Akshat Butler; Oksana Akhtar Discharging Clinician: Arnaldo Leija Anticipated Discharge Date/Time: 12/30/22 10:32 Patient Disposition: Home, Self-Care Activity: no straining, pelvic rest and other - see discharge instructions Diet: regular Patient Instructions: Antibiotic Form, Anterior Vaginal Repair (DC) Stand Alone Forms: General Discharge Information Follow-up/Referrals: Arnaldo Leija MD [Physician] - Call for Appointment Discharge Medications: New hydrocodone-acetaminophen 5-325 mg tablet 1 tablet PO Q4H PRN (Reason: pain) Qty: 14 0RF Continued fluconazole 150 mg tablet 150 mg PO EVERY OTHER DAY hydrocodone-acetaminophen 5-325 mg tablet 1 - 2 tablet PO Q6H PRN (Reason: pain) Qty: 25 0RF Date of admission: 12/28/22 21:09 Primary Care Provider: Juanis,Jeri Nelson Admitting Provider: Arnaldo Leija Attending physician on admission: Arnaldo Leija Condition: Stable
== END 2022-12-30 12:05 | disposition home or self-care (01) ==
LOC: ANHED 17:34 → ANHOB2 22:02
PROVIDERS: Admitting Provider Obstetrics & Gynecology; Emergency Provider Emergency Medicine; PCP Nurse Practitioner Family; Visit Provider Obstetrics & Gynecology
PROC: (CPT 59300; principal; 2022-12-28 19:00)
DX: T81.31XA Disruption of external operation (surgical) wound, not elsewhere classified, initial encounter (principal); Y83.8 Other surgical procedures as the cause of abnormal reaction of the patient, or of later complication, without mention of misadventure at the time of the procedure; N93.9 Abnormal uterine and vaginal bleeding, unspecified; R55 Syncope and collapse; Z90.710 Acquired absence of both cervix and uterus; E66.3 Overweight; Z68.29 Body mass index [BMI] 29.0-29.9, adult; Z87.891 Personal history of nicotine dependence; Z79.891 Long term (current) use of opiate analgesic; Z79.899 Other long term (current) drug therapy
CPT/HCPCS: 49320; 58999; 36415; 36430; 76856; 80048; 80053; 81001; 85025; 85027; 85610; 85730; 86850; 86900; 86901; 86923; 87086; 87088; 96360; 96361; 96374; 99284; 99285; A9270; G0378; J0690; J1170; J1885; J2250; J2405; J3010; J7030; J7050; J7120; P9016

== ENCOUNTER 2023-02-15 08:28 | Outpatient (CLI) | payer OTHER, SELFPAY ==
--- NOTE | ~2023-02-15 | CT_ITS ---
EXAMINATION: CT abdomen pelvis w con DATE: 02/15/2023 09:24 INDICATION: Unspecified abdominal pain TECHNIQUE: Computed tomography (CT) of the abdomen and pelvis was performed with 100 mL Omnipaque-350 intravenous contrast. Automated exposure control and iterative reconstruction technique were employe d. The dose-length product was 729.25 mGy-cm. COMPARISON: None FINDINGS: Lung bases are clear. Heart size is normal. No pericardial or pleural effusion. Liver, gallbladder, s pleen, pancreas, bilateral adrenal glands and kidneys are normal. Bladder is normal. The uterus is no t identified and has likely been surgically resected. 2.2 x 1.0 cm likely partially collapsed right o varian corpus luteum cyst with crenelated peripherally enhancing rim. Left adnexa is unremarkable. No bowel obstruction. Small amount of free fluid in the cul-de-sac could be physiologic or related to c yst rupture. No abscess or free intraperitoneal gas. No pathologically enlarged right supra-acetabula r bone island. lymphadenopathy. Mild thoracolumbar levocurvature. IMPRESSION: 1. Small amount of free fluid in the cul-de-sac which could be physiologic related to rupture of a 2. 2 x 1.0 cm peripherally enhancing right corpus luteum cyst. Reviewed, dictated and finalized at location A. IMPRESSION: 1. Small amount of free fluid in the cul-de-sac which could be physiologic rela kenneth to rupture of a 2.2 x 1.0 cm peripherally enhancing right corpus luteum cys t.
== END 2023-02-15 08:29 ==
LOC: MICIMG 08:30
PROVIDERS: PCP Nurse Practitioner Family; Visit Provider Obstetrics & Gynecology
DX: R10.9 Unspecified abdominal pain (principal); R18.8 Other ascites
CPT/HCPCS: 74177; Q9967

== ENCOUNTER 2023-05-04 08:00 | Outpatient (NON) | payer OTHER, SELFPAY | END 2023-05-04 08:01 | disposition home or self-care (01) | PROVIDERS: PCP Nurse Practitioner Family; Visit Provider Internal Medicine Gastroenterology | DX: R19.7 Diarrhea, unspecified (principal) | CPT/HCPCS: 88305 ==

== ENCOUNTER 2023-05-04 08:12 | Day surgery (SDC) | payer OTHER, SELFPAY ==
[2023-04-25 13:26] VITALS: BMI 29.0
--- NOTE | 2023-05-03 11:00 | WPDANESEPPF ---
Anes - Initial Pre Proc Eval Procedure: Operation Date: 05/04/23 10:30 Proposed Procedures p Diagnostic Colonoscopy - Angel Carmichael MD Date/Time: 05/03/23 11:00 Surgeon: Angel Carmichael MD Pre Op Diagnosis: abdominal pain, change in bowel habit Patient Data Age: 37 Gender: F Height: 1.65 m Weight: 79 kg Allergies Allergy/AdvReac Type Severity Reaction Status Date / Time tramadol Allergy Intermediate Itching Verified 05/04/23 09:08 Home Medications Medication Instructions Recorded Confirmed Type sodium,potassium,mag sulfates 17.5 See Rx Instructions PO .COMPLEX 04/24/23 05/04/23 Rx gram-3.13 gram-1.6 gram oral soln #354 mL (Suprep Bowel Prep Kit) Patient hx anesthesia problems: none Family hx anesthesia problems: none Results Review: All pre-operative results and documents have been reviewed as part of the pre-operative evaluation. [facility] Past Medical History Medical History (Updated 05/04/23 @ 09:53 by Angel Carmichael MD) Acid reflux Diarrhea Inguinal hernia RLQ abdominal pain Surgical History Surgical History H/O: hysterectomy Family History Family History Mother Hypertension Father Malignant neoplasm of prostate Social History Social History Smoking status: Never smoker Tobacco type: cigarettes Additional smoking assessment comments: A TEENAGER Alcohol intake: never Substance use: never Substance use type: does not use Living arrangements: with family Gender identity (if verbalized by the patient): Female Spiritual care concerns: No Anes - Eval Final PreProcedure Day of Procedure 05/03/23 11:00 Patient weight: overweight Heart: regular rate and rhythm Lungs: clear to auscultation Airway: Mallampati scale class II Neurological: alert and oriented Last oral intake: >/= 8 hours ASA classification: II Emergent: no Anesthetic plan: proceed Anesthesia type and monitoring: general GIVS and standard monitoring Results Review: All pre-operative results and documents have been reviewed as part of the pre-operative evaluation. Informed Consent: The patient's anesthetic plan and its attendant risks and benefits were discussed with the patient/family/POA. Questions were solicited and answers provided to the satisfaction of the patient/family/POA.
[2023-05-04 09:09] VITALS: BP 104/71; PULSE 84; RESP 20; TEMP 36.9; O2SAT 100
[2023-05-04] MEDS: LACTATED RINGERS 1,000 ML 150 ML IV CONT (09:41)
--- NOTE | 2023-05-04 09:50 | PM.HPGS ---
History of Present Illness History of Present Illness Consent: Risks, benefits, and alternatives have been discussed and questions answered. Patient agrees to proceed with procedure. Chief complaint: abdominal pain, change in bowel habit Narrative: Nallely Mcwilliams is a 37 year old female Presents for colonoscopy. Patient states she had a hysterectomy in the spring of this year. This was complicated by postoperative bleeding. Since that time i bowel habits have been irregular. She has diarrhea alternating with constipation occasional normal stools. She is any blood in her bowel habits. She has had no fevers. She does have a rather vague bilateral low abdominal discomfort and pain. Patient presents today for colonoscopy to assess the GI tract. Family history is noncontributory. Review of Systems Review of Systems: Systems noncontributory. [facility] Past Medical History Medical History (Updated 05/04/23 @ 09:53 by Angel Carmichael MD) Acid reflux Diarrhea Inguinal hernia RLQ abdominal pain Surgical History Surgical History H/O: hysterectomy Family History Family History Mother Hypertension Father Malignant neoplasm of prostate Social History Social History Smoking status: Never smoker Tobacco type: cigarettes Additional smoking assessment comments: A TEENAGER Alcohol intake: never Substance use: never Substance use type: does not use Living arrangements: with family Gender identity (if verbalized by the patient): Female Spiritual care concerns: No Meds Home Medications and Allergies Home Medications Medication Instructions Recorded Confirmed Type sodium,potassium,mag sulfates 17.5 See Rx Instructions PO .COMPLEX 04/24/23 05/04/23 Rx gram-3.13 gram-1.6 gram oral soln #354 mL (Suprep Bowel Prep Kit) Allergies Allergy/AdvReac Type Severity Reaction Status Date / Time tramadol Allergy Intermediate Itching Verified 05/04/23 09:08 Vital Signs Vital Signs - 24 hr 05/04/23 09:09 Temperature 98.4 F Pulse Rate 84 Respiratory Rate 20 Blood Pressure 104/71 Pulse Oximetry 100 Oxygen Delivery Room Air Exam Narrative: Physical exam reveals patient to be alert. Eyes stable. HEENT exam reveals no icterus. Lungs are clear. Heart without murmur. Abdomen bowel sounds present soft nontender with no organomegaly. Digital external rectal exam is normal. Assessment and Plan Assessment and plan (1) Abdominal pain: Code(s): R10.9 - Unspecified abdominal pain Status: Acute Assessment and Plan: Patient abdominal discomfort. This may be related to her recent hysterectomy. Colonoscopy requested to evaluate will be performed. Further recommendations will be given after endoscopy. (2) Change in bowel habit: Code(s): R19.4 - Change in bowel habit Status: Acute Assessment and Plan: Is now with alternating diarrhea constipation lower abdominal discomfort and irregular stools all since hysterectomy. I suspect she may have postoperative bowel syndrome. Increase in fiber supplementation encouraged. May benefit from anti spasmodic agent such as dicyclomine. Further recommendations will be given after colonoscopy.
[2023-05-04 10:58] VITALS: BP 105/65; PULSE 75; RESP 16; O2SAT 100
[2023-05-04 11:08] VITALS: BP 110/66; PULSE 77; RESP 18; O2SAT 100
[2023-05-04 11:18] VITALS: BP 110/67; PULSE 78; RESP 18; O2SAT 100
--- NOTE | 2023-05-04 12:35 | WPDANESPN ---
Anes - Prog Note Post-Op Date/Time: 05/04/23 12:35 Cardiovascular status: normal Respiratory status: normal Airway patency: baseline Mental status: baseline Post-Op hydration status: normal Vital Signs: Last Vital Signs Temp 36.9 C 05/04/23 09:09 Pulse 78 05/04/23 11:18 Resp 18 05/04/23 11:18 BP 110/67 05/04/23 11:18 Pulse Ox 100 05/04/23 11:18 O2 Del Method Room Air 05/04/23 11:18 Pain Score (VAS): 0 I/O: Intake & Output 05/03/23 05/04/23 05/04/23 23:59 07:59 15:59 Intake Total 700 Balance 700 Post-procedural complaints: none Patient Feedback: Patient satisfied with anesthetic care. Other Findings: Patient vital signs back to baseline. Patient denies nausea and vomiting. Patient's pain under control. Patient OK for discharge.
== END 2023-05-04 11:35 | disposition home or self-care (01) ==
PROVIDERS: PCP Nurse Practitioner Family; Visit Provider Internal Medicine Gastroenterology
PROC: 0DJD8ZZ Inspection of Lower Intestinal Tract, Via Natural or Artificial Opening Endoscopic (ICD-10-PCS; CPT 45378; principal; 2023-05-04 10:30)
DX: R19.4 Change in bowel habit (principal); K64.8 Other hemorrhoids
CPT/HCPCS: 45380